=== PATIENT | male | born 1975 | race Asian ===

== ENCOUNTER 2019-12-30 23:49 | Inpatient (IN) | payer OTHER ==
[~2019-12-30] VITALS: Ht 167.6 cm; Wt 83.3 kg
[2019-12-31 01:21] LABS: BASOPHILS % (AUTO) 0.4 % (0.0-2.0); HEMATOCRIT 41.2 % (41-53); HEMOGLOBIN 13.7 g/dL (13.5-17.5); LYMPHOCYTES # (AUTO) 2.1 K/uL (1.0-4.8); LYMPHOCYTES % (AUTO) 18.3 % (22.0-44.0); MEAN CORPUSCULAR HGB CONC 33.3 G/dL (31.0-37.0); MEAN CORPUSCULAR VOLUME 90 fL (80-100); MONOCYTES # (AUTO) 0.7 K/uL (0.1-1.0); MONOCYTES % (AUTO) 6.5 % (2.0-9.0); NEUTROPHILS # (AUTO) 8.4 K/uL (1.8-7.7); NEUTROPHILS % (AUTO) 73.8 % (40.0-70.0); PLATELET COUNT (AUTO) 254 K/uL (150-450); RED BLOOD CELL COUNT(AUTO) 4.59 MIL/uL (4.50-5.90); RED CELL DISTRIBUTION WIDTH 12.4 % (11.5-14.5)
[2019-12-31 01:34] LABS: ANION GAP 10 mmol/L (8-16); CARBON DIOXIDE 25 mmol/L (22-29); CHLORIDE 99 mmol/L (98-107); CREATININE 0.97 mg/dL (0.60-1.30); GLOMERULAR FILTR. RATE CALC > 60 mL/min (>60); GLUCOSE,RANDOM 246 mg/dL (70-110); POTASSIUM 3.4 mmol/L (3.5-5.1); SODIUM SERUM 134 mmol/L (136-145); UREA NITROGEN, BLOOD 11 mg/dL (7-18)
[2019-12-31] MEDS ORDERED: SODIUM CHLORIDE 0.9% 100 ML ONE ×2 (01:35→15:29)
[2019-12-31] MEDS ORDERED: IOVERSOL 350 MG/ML 100 ML VIAL ONE ×2 (01:35→15:29)
[2019-12-31 01:41] LABS: ALANINE AMINOTRANSFERASE 79 U/L (12-78); ALBUMIN 4.1 g/dL (3.4-5.0); ALKALINE PHOSPHATASE 66 U/L (46-116); ASPARTATE AMINOTRANSFERASE 24 U/L (15-37); BILIRUBIN,TOTAL 0.5 mg/dL (0.1-1.0); CREATINE KINASE, TOTAL ONLY 93 U/L (39-308); TOTAL PROTEIN, SERUM 7.4 g/dL (6.4-8.2)
[2019-12-31] MEDS: NiCARDipine HCL 25 MG in SODIUM CHLORIDE 0.9% 240 ML IV PRN ×2 (03:18→06:18)
[2019-12-31 03:45] LABS: AMPHET/METH SCREEN,URINE NEGATIVE (NEGATIVE); BARBITURATE SCREEN, URINE NEGATIVE (NEGATIVE); BENZODIAZEPINES SCREEN,URINE NEGATIVE (NEGATIVE); CANNABINOID SCREEN,URINE NEGATIVE (NEGATIVE); COCAINE SCREEN,URINE NEGATIVE (NEGATIVE); METHADONE SCREEN, URINE NEGATIVE (NEGATIVE); OPIATE SCREEN,URINE NEGATIVE (NEGATIVE)
[2019-12-31] MEDS ORDERED: 0.9% SODIUM CHLORIDE 10 ML SYRINGE IVP PRN (03:45)
[2019-12-31] MEDS ORDERED: ACETAMINOPHEN 325 MG TABLET PO PRN ×2 (03:45→05:45)
[2019-12-31] MEDS ORDERED: ONDANSETRON HCL 4 MG/2 ML VIAL IVP PRN ×2 (03:45→05:45)
[2019-12-31 03:46] LABS: PHENCYCLIDINE SCREEN,URINE NEGATIVE (NEGATIVE)
[2019-12-31 04:52] LABS: PROTHROMBIN TIME 10.3 SEC (9.4-11.6)
[2019-12-31 07:09] LABS: GLUCOSE,POINT OF CARE 233 MG/DL (70-110)
[2019-12-31] MEDS ORDERED: POTASSIUM CHL 10 MEQ/WATER 50 ML IV PRN (08:30)
[2019-12-31] MEDS ORDERED: DEXTROSE 50%-WATER 25 GM/50 ML SYRINGE IVP PRN (08:30)
[2019-12-31 09:49] LABS: HEMOGLOBIN A1C 7.3 % (3.8-5.6)
[2019-12-31 09:55] LABS: CHOL/HDL RATIO 2.9 (4.2-7.3)
[2019-12-31] MEDS: FAMOTIDINE 20 MG TABLET PO SCH (09:59)
[2019-12-31] MEDS: DOCUSATE SODIUM 100 MG CAPSULE PO SCH ×2 (09:59→21:00)
[2019-12-31] MEDS: POTASSIUM CHLORIDE 20 MEQ ER TABLET PO PRN ×2 (10:03→17:17)
[2019-12-31] MEDS: INSULIN LISPRO 100 UNITS/ML SQ PRN (10:03)
[2019-12-31 13:07] VITALS: BP 114/65
[2019-12-31 14:30] VITALS: BP 116/44
[2019-12-31 15:26] VITALS: BP 137/82
[2019-12-31 16:00] VITALS: BP 125/90
[2019-12-31 19:24] LABS: GLUCOSE,POINT OF CARE 174 MG/DL (70-110)
[2019-12-31 20:00] VITALS: BP 108/72
[2019-12-31 21:30] LABS: GLUCOSE,POINT OF CARE 117 MG/DL (70-110)
[2019-12-31 21:57] LABS: GLUCOSE,POINT OF CARE 114 MG/DL (70-110)
[2020-01-01] VITALS (7 sets, daily range): BP systolic 97–132; BP diastolic 47–90
[2020-01-01 05:15] LABS: BASOPHILS % (AUTO) 0.4 % (0.0-2.0); EOSINOPHILS % (AUTO) 2.6 % (1.0-6.0); HEMOGLOBIN 14.2 g/dL (13.5-17.5); LYMPHOCYTES # (AUTO) 3.2 K/uL (1.0-4.8); LYMPHOCYTES % (AUTO) 27.5 % (22.0-44.0); MEAN CORPUSCULAR HEMOGLOBIN 30.5 pg (26.0-34.0); MEAN CORPUSCULAR HGB CONC 33.8 G/dL (31.0-37.0); MEAN CORPUSCULAR VOLUME 90 fL (80-100); MONOCYTES % (AUTO) 8.8 % (2.0-9.0); NEUTROPHILS # (AUTO) 7.1 K/uL (1.8-7.7); NEUTROPHILS % (AUTO) 60.7 % (40.0-70.0); PLATELET COUNT (AUTO) 252 K/uL (150-450); RED BLOOD CELL COUNT(AUTO) 4.66 MIL/uL (4.50-5.90); RED CELL DISTRIBUTION WIDTH 12.6 % (11.5-14.5)
[2020-01-01 05:24] LABS: ANION GAP 7 mmol/L (8-16); CARBON DIOXIDE 27 mmol/L (22-29); CHLORIDE 103 mmol/L (98-107); CREATININE 0.97 mg/dL (0.60-1.30); GLOMERULAR FILTR. RATE CALC > 60 mL/min (>60); GLUCOSE,RANDOM 165 mg/dL (70-110); POTASSIUM 3.8 mmol/L (3.5-5.1); SODIUM SERUM 137 mmol/L (136-145); UREA NITROGEN, BLOOD 11 mg/dL (7-18)
[2020-01-01 06:27] LABS: GLUCOSE,POINT OF CARE 159 MG/DL (70-110)
[2020-01-01] MEDS: FAMOTIDINE 20 MG TABLET PO SCH (08:13)
[2020-01-01] MEDS: DOCUSATE SODIUM 100 MG CAPSULE PO SCH ×2 (08:13→21:00)
[2020-01-01 12:59] LABS: GLUCOSE,POINT OF CARE 139 MG/DL (70-110)
[2020-01-01] MEDS: INSULIN LISPRO 100 UNITS/ML SQ PRN (18:21)
[2020-01-01 20:56] LABS: GLUCOMETER DEV NAME(LOC) 5S.2A; GLUCOSE,POINT OF CARE 172 MG/DL (70-110)
[2020-01-02 00:35] VITALS: BP 129/96
[2020-01-02 03:06] LABS: GLUCOMETER DEV NAME(LOC) 5S.2A; GLUCOSE,POINT OF CARE 139 MG/DL (70-110)
[2020-01-02 04:45] VITALS: BP 127/88
[2020-01-02] MEDS: INSULIN LISPRO 100 UNITS/ML SQ PRN ×2 (06:31→12:18)
[2020-01-02 06:32] LABS: GLUCOMETER DEV NAME(LOC) 5N.1; GLUCOSE,POINT OF CARE 148 MG/DL (70-110)
[2020-01-02] MEDS: DOCUSATE SODIUM 100 MG CAPSULE PO SCH (08:13)
[2020-01-02] MEDS: FAMOTIDINE 20 MG TABLET PO SCH (08:13)
[2020-01-02 09:17] VITALS: BP 127/83
[2020-01-02] MEDS ORDERED: METF-960 PO (11:02)
[2020-01-02 11:08] VITALS: BP 124/78
[2020-01-02 12:10] LABS: GLUCOMETER DEV NAME(LOC) 5N.1; GLUCOSE,POINT OF CARE 158 MG/DL (70-110)
== END 2020-01-02 14:05 | disposition home or self-care (01) | DRG 65 ==
LOC: EMS 23:49 → ICUN 12-31 05:42 → 5S 12-31 10:50 → ICU 12-31 14:37 → 5S 01-01 14:05
PROVIDERS: ADMIT Internal Medicine; ATTEND Internal Medicine
DX: I61.0 Nontraumatic intracerebral hemorrhage in hemisphere, subcortical (principal); G81.94 Hemiplegia, unspecified affecting left nondominant side; E11.9 Type 2 diabetes mellitus without complications; I10 Essential (primary) hypertension; E66.9 Obesity, unspecified; Z68.29 Body mass index [BMI] 29.0-29.9, adult; Z82.49 Family history of ischemic heart disease and other diseases of the circulatory system; Z87.891 Personal history of nicotine dependence; R47.81 Slurred speech
CPT/HCPCS: 70450; 70496; 70551; 72125; 83036; 84132; 87081; 92610; 93005; 93306; 93880; 97162; 97165; 97535; 99291; G0378; J1815; J3490; J7050

== ENCOUNTER → 2020-04-08 | Outpatient (CLI) | payer OTHER ==
[~2020-04-08] MED LIST: GADOTERATE MEGLUMINE 10 MMOL/20 ML VIAL IVP ONE; METF-960 PO
== END | disposition home or self-care (01) ==
LOC: RADMN 09:38
PROVIDERS: ATTEND Neurological Surgery
DX: I67.82 Cerebral ischemia (principal)
CPT/HCPCS: 70553; A9575